=== PATIENT | male | born 1995 | race Asian ===

== ENCOUNTER 2019-11-17 19:28 | Emergency (ER) | payer OTHER, MEDICAID ==
[~2019-11-17] VITALS: Ht 172.7 cm; Wt 88.5 kg
[2019-11-17 19:33] VITALS: Ht 172.7 cm; Wt 88.5 kg
[2019-11-17 21:19] VITALS: BP 136/81
== END 2019-11-17 21:20 | disposition home or self-care (01) ==
LOC: ED 19:28
DX: S29.011A Strain of muscle and tendon of front wall of thorax, initial encounter (principal); S80.812A Abrasion, left lower leg, initial encounter; S80.811A Abrasion, right lower leg, initial encounter; V49.49XA Driver injured in collision with other motor vehicles in traffic accident, initial encounter; Y93.I9 Activity, other involving external motion; Y92.413 State road as the place of occurrence of the external cause; Y99.8 Other external cause status